=== PATIENT | male | born 1985 | race American Indian/Alaskan Native ===

== ENCOUNTER 2017-09-05 11:05 | Day surgery (SDC) | payer OTHER ==
[2017-09-05] MEDS ORDERED: DEMEROL IV PRN (13:41)
[2017-09-05] MEDS ORDERED: DILAUDID IV PRN (13:41)
[2017-09-05] MEDS ORDERED: ZOFRAN IV PRN (13:41)
[2017-09-05] MEDS ORDERED: LACTATED RINGERS 1,000 ML IV SCH (14:00)
[2017-09-05] MEDS ORDERED: VERSED IV NR (14:00)
[2017-09-05] MEDS ORDERED: DILAUDID ONE ×2 (14:36→16:42)
[2017-09-05] MEDS ORDERED: XYLOCAINE MPF 2% ONE (14:36)
[2017-09-05] MEDS ORDERED: DIPRIVAN 10 MG/ML IV ONE (14:36)
[2017-09-05 15:09] LABS: Basophils # (Auto) 0.1 K/mm3 (0.0-0.1); Basophils % (Auto) 1.2 % (0.0-1.8); Eosinophils # (Auto) 0.1 K/mm3 (0.0-0.4); Eosinophils % (Auto) 1.1 % (0.0-4.3); Hemoglobin 12.4 gm/dl (11.8-15.2); Lymphocytes # (Auto) 3.3 K/mm3 (1.2-5.4); Lymphocytes % (Auto) 27.2 % (13.4-35.0); Mean Corpuscular HGB Conc 33 % (32-34); Mean Corpuscular Hemoglobin 31 pg (28-32); Mean Corpuscular Volume 96 fl (84-94); Monocytes # (Auto) 1.1 K/mm3 (0.0-0.8); Monocytes % (Auto) 9.2 % (0.0-7.3); Platelet Count 404 K/mm3 (140-440); Red Blood Count 3.95 M/mm3 (3.65-5.03); Red Cell Distribution Width 13.7 % (13.2-15.2)
[2017-09-05] MEDS ORDERED: ANCEF/STERILE WATER 2 GM/20 ML IV NR (16:00)
[2017-09-05] MEDS ORDERED: SUBLIMAZE ONE (16:56)
[2017-09-05] MEDS ORDERED: ZOFRAN ONE (17:39)
--- NOTE | 2017-09-05 18:11 | Anesthesia Day of Surgery ---
Anesthesia Day of Surgery - Day of Surgery Patient Examined: Yes Patient H&P Reviewed: Yes Patient is NPO: Yes
--- NOTE | 2017-09-05 18:12 | Anesthesia Consultation ---
Anesthesia Consult and Med Hx Date of service: 09/05/17 - Airway Anesthetic Teeth Evaluation: Good ROM Head & Neck: Adequate Mental/Hyoid Distance: Adequate Mallampati Class: Class III Intubation Access Assessment: Possibly Difficult - Pulmonary Exam CTA: Yes - Cardiac Exam Cardiac Exam: RRR - Pre-Operative Health Status ASA Pre-Surgery Classification: ASA3 Proposed Anesthetic Plan: General - Pulmonary Hx Smoking: Yes (LIGHT CIGAR FOR 2 YEARS) - Cardiovascular System Hx Heart Murmur: Yes - Central Nervous System Hx Psychiatric Problems: No - Other Systems Hx Alcohol Use: Yes (SOCIALLY)
--- NOTE | 2017-09-05 19:12 | Operative Report ---
PREOPERATIVE DIAGNOSIS: Gynecomastia. POSTOPERATIVE DIAGNOSIS: Gynecomastia. PROCEDURES: 1. Bilateral simple mastectomies. 2. Free nipple areolar complex grafting bilaterally. SURGEON: Yvan Fisher MD SENIOR INFORMATION SECURITY ANALYST: Mando Gardiner CSA. DESCRIPTION OF PROCEDURE: The patient was brought to the operating room and placed on the table in the supine position. Following administration of general anesthesia, the bilateral breasts were prepped with Betadine solution, draped in the usual sterile manner. A #10 blade scalpel was used to make an inframammary fold skin incision and a transverse incision above the nipple areolar complex. Superior skin flap was elevated subcutaneous plane all the way up to the clavicle superiorly, the lateral border of the sternum, and lateral border of the pectoralis major muscle. Following this, the inframammary fold surgical incision was incised, deepened through the subcutaneous fat and breast tissue down to the pectoralis major fascia and breast tissue was elevated in this plane up to the clavicle lateral border of sternum and lateral border of the pectoralis major muscle excised and sent to pathology as a specimen. The nipple areolar complex was removed, decreased in size to approximately 2 cm in diameter, defatted, and pie crusted with #11 blade scalpel. A skin flap closure was performed over 10 mm CEASAR drains using interrupted and running subcuticular 2-0 Monocryl sutures. New site was chosen for the nipple areolar complex, which was deepithelialized followed by application of the nipple areolar complex. Grafts secured in place with running 3-0 Monocryl sutures followed by a sterile lightly compressive dressing. The patient tolerated the procedure well and returned to recovery room in stable condition. JOB# [id number] FTW/NTS
[2017-09-05 21:47] VITALS: BP 130/65
--- NOTE | 2017-09-05 22:44 | Discharge Summary ---
Short Stay Discharge Plan Activity: other (Avoid strenuous Activity) Weight Bearing Status: Full Weight Bearing Diet: regular Wound: remove dressing (72hrs except for dressing over the Nipple Areolar Complexes to be left intact until post-op visit.) Additional Instructions: APPOINTMENT: DR. TAINA DIALLO MD. WANTS TO SEE YOU IN 7 DAYS. CALL THE OFFICE FOR YOUR APPOINTMENT. ACTIVITY: NO STRENOUS ACTIVITY. WOUND CARE: KEEP DRESSING CLEAN AND DRY. DO NOT CHANGE DRESSING. DIET: REGULAR Follow up with: PRIMARY CAREMD [Primary Care Provider] - 6 Weeks TAINA LUCIANO JR, MD [Staff Physician] - 7 Days Forms: [facility]
--- NOTE | 2017-09-05 22:46 | Short Stay Summary ---
Short Stay Documentation Date of service: 09/05/17 - Allergies and Medications Current Medications: Allergies No Known Allergies Allergy (Verified 09/02/17 10:18) Home Medications Medication Instructions Recorded Confirmed Last Taken Type No Known Home Medications [No 09/02/17 09/02/17 Unknown History Reported Home Medications] - Brief post op/procedure progress note Date of procedure: 09/05/17 Pre-op diagnosis: Gynecomastia Post-op diagnosis: same Procedure: Sampson. Simple Mastectomies with Free NAC Grafting Anesthesia: GETA Surgeon: TAINA LUCIANO JR Estimated blood loss: 50-100ml Specimen disposition: to lab Condition: stable - Disposition Condition at discharge: Good Disposition: DC-01 TO HOME OR SELFCARE Short Stay Discharge Plan Additional Instructions: APPOINTMENT: DR. TAINA DIALLO MD. WANTS TO SEE YOU IN 7 DAYS. CALL THE OFFICE FOR YOUR APPOINTMENT. ACTIVITY: NO STRENOUS ACTIVITY. WOUND CARE: KEEP DRESSING CLEAN AND DRY. DO NOT CHANGE DRESSING. DIET: REGULAR Follow up with: TAINA LUCIANO JR, MD [Staff Physician] - 7 Days PRIMARY CAREMD [Primary Care Provider] - 6 Weeks Forms: [facility]
== END 2017-09-05 21:20 | disposition home or self-care (01) ==
LOC: OR 11:05
PROVIDERS: ATTEND Plastic Surgery
DX: N62 Hypertrophy of breast (principal); F17.290 Nicotine dependence, other tobacco product, uncomplicated; Z79.899 Other long term (current) drug therapy
CPT/HCPCS: 19303; 36415; 85025; 88305; J0690; J1170; J2250; J2405; J2704; J3010; J7120